=== PATIENT | female | born 1960 | race Caucasian/White ===

== ENCOUNTER 2018-08-14 10:52 | Emergency (ER) | payer SELFPAY ==
[2018-08-14] MEDS ORDERED: LORazepam TAB(*) 1 MG PO ONE (11:03)
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
[2018-08-14 11:47] LABS: ABS Basophils 0 10^3/ul (0-0.2); ABS Eosinophils 0 10^3/ul (0-0.6); ABS Lymphocytes 2.7 10^3/ul (1.0-4.8); ABS Monocytes 0.2 10^3/ul (0-0.8); ABS Neutrophils 1.9 10^3/ul (1.5-7.7); ABS Nucleated RBC 0 10^3/ul; Eosinophil % 0.6 % (0-6); Hematocrit 46 % (35-47); Hemoglobin 15.8 g/dl (12.0-16.0); Lymphocyte % 55.8 % (25-47); Mean Corpuscular HGB Conc 34 g/dl (31-36); Mean Corpuscular Hemoglobin 32 pg (27-31); Mean Corpuscular Volume 94 fL (80-97); Mean Platelet Volume 7.2 um3 (7.4-10.4); Nucleated Red Blood Cells % 0.2; Platelet Count 277 10^3/ul (150-450); Red Blood Count 4.95 10^6/ul (4.00-5.40); Red Cell Distribution Width 14 % (10.5-15); White Blood Count 4.8 10^3/ul (3.5-10.8)
[2018-08-14 12:05] LABS: EGFR Non-African American 91.4 (>60)
[2018-08-14] MEDS ORDERED: diPHENhydraMINE IV* 50 MG/ML 1 ml VIAL (BENADRYL) IM ONE (15:56)
[2018-08-14] MEDS ORDERED: LORazepam INJ* 2 MG/ML 1 ML VIAL IM ONE (15:56)
[2018-08-14] MEDS ORDERED: Haloperidol INJ IV/IM* 5 MG/ML AMP IM ONE (15:56)
[2018-08-14] MEDS ORDERED: Haloperidol INJ IV/IM* 5 MG/ML AMP ONE (16:10)
[2018-08-14] MEDS ORDERED: diPHENhydraMINE IV* 50 MG/ML 1 ml VIAL (BENADRYL) ONE (16:10)
[2018-08-14] MEDS ORDERED: LORazepam INJ* 2 MG/ML 1 ML VIAL ONE (16:10)
[2018-08-14] MEDS ORDERED: Lidocaine 1% INJ* 10 MG/ML 30 ML SDV ONE (21:35)
[2018-08-14] MEDS ORDERED: Lidocaine 1% INJ* 10 MG/ML 30 ML SDV INJ ONE (21:36)
[2018-08-15 04:13] LABS: Urine Appearance Cloudy; Urine Blood Negative (Negative); Urine Color Yellow; Urine Ketones Negative (Negative); Urine Protein Negative (Negative); Urine Specific Gravity 1.016 (1.010-1.030); Urine Urobilinogen Negative (Negative)
[2018-08-15 06:50] VITALS: BP 146/103
== END 2018-08-15 06:45 | disposition home or self-care (01) ==
LOC: ED 10:52
DX: F10.129 Alcohol abuse with intoxication, unspecified (principal); S01.511A Laceration without foreign body of lip, initial encounter; W19.XXXA Unspecified fall, initial encounter; Z79.899 Other long term (current) drug therapy
CPT/HCPCS: 12011; 36415; 80053; 80307; 80320; 80329; 81003; 84443; 85025; 96372; 99285; A9270-GY; G0480; J1200; J1630; J2060

== ENCOUNTER 2019-02-09 11:19 | Emergency (ER) | payer BC ==
[2019-02-09 11:54] VITALS: BP 157/104
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
== END 2019-02-09 13:04 | disposition home or self-care (01) ==
LOC: UCEAST 11:19
DX: J20.9 Acute bronchitis, unspecified (principal); I10 Essential (primary) hypertension; Z88.0 Allergy status to penicillin
CPT/HCPCS: 87651; 99212; G0463

== ENCOUNTER 2019-04-26 10:25 | Emergency (ER) | payer BC ==
[2019-04-26 10:35] VITALS: BP 167/98
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
[2019-04-26] MEDS ORDERED: PPD test dose* 5 TU/0.1 ML TEST (*USE PPD ORDER SET*) ONE (11:20)
== END 2019-04-26 10:51 | disposition home or self-care (01) ==
LOC: UCEAST 10:25
DX: K04.7 Periapical abscess without sinus (principal); Z88.5 Allergy status to narcotic agent; Z88.0 Allergy status to penicillin
CPT/HCPCS: 99212; G0463